=== PATIENT | female | born 1970 | race Caucasian/White ===

== ENCOUNTER 2024-06-04 08:27 | Outpatient (REF) | payer OTHER, SELFPAY ==
--- OUTSIDE RECORDS SUMMARY | 2024-06-04 11:33 | XMS_ITS | Clinical Summary ---
Author Organization [facility] Address [address] [place] [address] Care Team Providers Care Financial Report Service Sales Agent Name Role Phone Polly Wright MD Primary Care Provider [phone] Allergies Active Allergy Reactions Criticality Noted Date [...] Documents on File Type Date Recorded Patient Office Clerk Routine Expl anation Health Care Decision (hx) 04/29/2021 AD ROJAS DIRECTIVE Health Care Decision (hx) 04/29/2021 AD ROJAS DIRECTIVE Care Teams Financial Report Service Sales Agent Relationship Specialty Start Date End Date Polly Wright MD [address] [place] [address] PCP - General 12/23/21
[2024-06-04 13:42] LABS: TSH reflex Free T4 85.51 uIU/mL (0.32-4.0)
[2024-06-04 14:34] LABS: Free T4 (Free Thyroxine) < 0.42 ng/dL (0.71-1.85)
== END 2024-06-04 08:28 | disposition home or self-care (01) ==
LOC: HO.HMGCLDS 08:27
PROVIDERS: PCP Nurse Practitioner Family; Visit Provider Nurse Practitioner Family
DX: E03.9 Hypothyroidism, unspecified (principal)
CPT/HCPCS: 36415; 84439; 84443; 99202

== ENCOUNTER 2024-06-04 08:27 | Outpatient (AMB) | payer OTHER, SELFPAY ==
--- OUTSIDE RECORDS SUMMARY | 2024-06-04 08:49 | XMS_ITS | Clinical Summary ---
Author Organization [facility] Address [address] [place] [address] Care Team Providers Care Mens Locker Room Attendant Name Role Phone Polly Wright MD Primary Care Provider [phone] Allergies Active Allergy Reactions Criticality Noted Date Comments Sulfamethoxazole-Trimethop rim 07/30/2009 Other Reaction(s): Rash/Dermatitis Medications levothyroxine (SYNTHROID, LEVOTHROID) 112 mcg tablet Take 1 Tablet by mouth every morning (before breakfast). 06/20/2023 Active Active Problems Problem Noted Date Diagnosed Date Elevated LFTs 06/20/2023 Overweight (BMI 25.0-29.9) 09/18/2018 Essential hypertension 03/09/2018 Lumbago 06/04/2010 Lumbar disc disorder 10/10/2009 Tobacco use disorder 07/30/2009 Depression 01/25/2005 Hypothyroidism 12/19/2001 Overview (01/27/2024): [facility] RX 1998 Immunizations Name Administration Dates Next Due Hepatitis B (Recombivax HB-Dialysis) 18yo and ol jeanette 04/17/2003,03/21/2003 Influenza Quadravalent, MDCK , 0.5ml, preservative free (Flucelvax) 6mo and older 01/20/2021 Influenza Quadravalent, MDCK , 0.5ml, with preservative (Flucelvax) 6mo and older 12/03/2016 Influenza trivalent, 0.5mL, preservative free (Fluarix; FluLaval; Fluzone) ages 6mo and older (Afluria) 3 years and older 11/29/2012,12/14/2011 PPD Test 03/21/2003 Td Tetanus diptheria (Tdvax) 7yo and older 03/21 Tdap Tetanus diptheria acell ular pertussis (Boostrix; Adacel) 7yo and older 08/03/2012 Surgical History Surgery Date Site/Laterality Comments TUBAL LIGATION PROCEDURE: HISTORICAL TUBAL LIGATION TONSILLECTOMY PROCEDURE: HISTORICAL TONSILLECTOMY HERNIA REPAIR PROCEDURE: HISTORICAL HERNIA REPAIR/ING Medical History Medical History Date Comments Unspecified hypothyroidism 12/19/01 DX:Un specified hypothyroidism; COMMENT: [facility]O RX 1998 Depressive disorder, not els ewhere classified 01/25/2005 DX:Depressive disorder, not elsewhere classified Family History Medical History Relation Name Comments Other: cause unknown Father Diabetes Maternal Grandmother Other: alive and well Mother Relation Name Status Comments Father Maternal Grandmother Alive Mother Alive Social History Tobacco Use Types Packs/Day Years Used Date Smoking Tobacco: Every Day Cigarettes Smokeless Tobacco: Never Alcohol Use Standard Drinks/Week Comments No 0 (1 standard drink = 0.6 oz pur e alcohol) Comments Unknown Sex and Gender Information Value Date Recorded Sex Assigned at Not on file Legal Sex Female 4:58 PM EST Gender Identity Not on file Sexual Orientation Not on file Obstetrics History Last Filed Vital Signs Vital Sign Reading Time Taken Comments Blood Pressure 128/76 02/05/2022 9:44 AM EST Pulse 98 02/05/2022 9:44 AM EST Temperature - - Respiratory Rate - - Oxygen Saturation - - Inhaled Oxygen Concentration - - Weight 72.6 kg (160 lb) 02/05/2022 9:44 AM EST Height 167.6 cm (5' 6 ) 07/13/2021 1:30 PM EDT Body Mass Index 25.82 07/13/2021 1:30 PM EDT Plan of Treatment Health Maintenance Due Date Last Done Comments Breast Cancer Screening 1972 Hepatitis A Vaccines (1 of 2 - Risk 2-dose series) 06/07/1991 Pneumococcal Vaccine: 50+ Years (1 of 2 - PCV) 06/07/1991 Pneumococcal Vaccine: Pediatrics (0 to 5 Years) and At-Risk Patients (6 to 64 Years) (1 of 2 - PCV) 06/07/1991 Cervical Cancer Screening: Pap Smear 1993 Hepatitis B Vaccines (3 of 3 - 19+ 3-dose series) 09/19/2003 04/17/2003, 03/21/2003 Colorectal Cancer Screening: Colonoscopy 01/06/2022 Depression Screening 01/06/2022 HIV Screening 01/06/2022 Social Influencers of Health Screening 01/06/2022 Zoster Vaccines (1 of 2) 2022 DTaP,Tdap,and Td Vaccines (3 - Td or Tdap) 08/03/2022 08/03/2012, 03/21/2003 COVID-19 Vaccine (2 - season) 2023 11/11/2020 Hypertension/CHF/CAD Annual BMP Blood Test 04/11/2024 04/12/2023 Influenza Vaccine (Season Ended) 2024 01/20/2021, 12/03/2016, 11/29/2012, Additional history exists Cholesterol Screening (Lipid Panel) 04/11/2028 04/12/2023 Hepatitis C Screening Completed 04/12/2023 HIB Vaccines Aged Out No longer eligi ble based on patient's age to complete this topic HPV Vaccines Aged Out No longer eligi ble based on patient's age to complete this topic IPV Vaccines Aged Out No longer eligi ble based on patient's age to complete this topic MMR Vaccines Aged Out No longer eligi ble based on patient's age to complete this topic Meningococcal ACWY Vaccine Aged Out N o longer eligible based on patient's age to complete this topic Meningococcal B Vaccine Aged Out No l onger eligible based on patient's age to complete this topic RSV Immunization Patients Under 20 months Aged Out No longer eligible based on patient's age to complete this topic Varicella Vaccines Aged Out No longer eligible based on patient's age to complete this topic Procedures Procedure Name Priority Date/Time Associated Diagnosis Comments HEPATITIS C SCREENING Routine 04/12/2023 ANNUAL BMP BLOOD TEST Routine 04/12/2023 LIPID PANEL Routine 04/12/2023 from Last 3 Months or Most Recently Relevant to Health Maintenance Results * Annual BMP Blood Test (04/12/2023) Annual BMP Blood Test abstracted us Historical Provider HEALTH MAINTENANCE Final Result * Hepatitis C Screening (04/12/2023) Hepatitis C Screening abstracted Historical Provider HEALTH MAINTENANCE Final Result * (ABNORMAL) Lipid panel (04/12/2023) LDL/HDL Ratio 3 0 - 4 Triglycerides 129 0 - 150 mg/dL Cholesterol 300(A) 0 - 200 mg/dL HDL 99 >=40 mg/dL LDL Cholesterol 176(A) 0 - 100 mg/dL Blood Venous blood specimen / Unknown Historical Provider LAB BLOOD ORDERABLES Tameka l Result from Last 3 Months or Most Recently Relevant to Health Maintenance Advance Directives Documents on File Type Date Recorded Patient 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
[2024-06-04 09:30] VITALS: BP 110/74; PULSE 90; TEMP 36.8; O2SAT 98
--- NOTE | 2024-06-04 09:30 | MHC.OFFWIV ---
Intake Vital Signs 06/04/24 09:30 Weight 128 lb 8 oz BP 110/74 Blood Pressure Location Lt brachial Position Sitting Pulse 90 Pulse Source Pulse Oximeter Temp 98.2 F Temp Source Oral Pulse Oximetry (%) 98 Oxygen Delivery Method Room Air Intake Visit Reasons: EP Thyroid med refill (meg melendrez/ emilee) Intake Note: Patient here for refill on thyroid med. Patient would also like to talk about her mouth infection. Patient Tobacco Use Status: Current everyday Tobacco user Allergies sulfamethoxazole [From BACTRIM] Allergy (Unknown, Unverified 06/04/24 09:33) RASH trimethoprim [From BACTRIM] Allergy (Unknown, Unverified 06/04/24 09:33) RASH Do you need a note to return to daycare/school/sports/work: Yes HPI HPI Comments History of Present Illness Details 53 y/o Female patient who presents to the [facility] in clinic asking for Medication refills. Pt has Hypothyroidism and takes Levothyroxine 112 mcg daily. Pt has been out of medications for few months now. [facility] Medical History (Updated 06/04/24 @ 10:01 by Emilee Marti NP) Hypothyroidism Social History Patient Tobacco Use Status: Current everyday Tobacco user Review of Systems Const All systems reviewed & are unremarkable except as noted in HPI and below Physical Exam Vital Signs: Last Vital Signs Temp 98.2 F 06/04/24 09:30 Pulse 90 06/04/24 09:30 BP 110/74 06/04/24 09:30 Pulse Ox 98 06/04/24 09:30 Oxygen Delivery Method Room Air 06/04/24 09:30 Const General: no acute distress Orientation/consciousness: patient oriented x3 Resp Effort & Inspection: normal respiratory effort Auscultation: clear to auscultation bilaterally Cardio Heart sounds: S1 normal heart sound present and S2 normal heart sound present Neuro General: patient oriented x3, gait normal and moves all extremities Psych Speech and movement: Normal speech and movement present Assessment & Plan Assessment & Plan (1) Hypothyroidism: Code(s): E03.9 - Hypothyroidism, unspecified Qualifiers: Hypothyroidism type: unspecified Qualified Code(s): E03.9 - Hypothyroidism, unspecified Plan: Ordered TSH Panel Depending on the Labs, will refill Levothyroxine. F/U with PCP. Orders: Orders TSH reflex Free T4 Today E03.9 - Hypothyroidism, unspecified Coding Level of Care Code New Pt Level 4 (53124) Diagnoses Hypothyroidism, unspecified type E03.9 Hypothyroidism type: unspecified Time Spent (min) 20
== END 2024-06-04 10:06 | disposition home or self-care (01) ==
LOC: HO.HMCWIC 08:27
PROVIDERS: PCP Nurse Practitioner Family; Visit Provider Nurse Practitioner Family
DX: E03.9 Hypothyroidism, unspecified (principal)

== ENCOUNTER 2024-07-03 10:00 | Outpatient (REF) | payer OTHER, SELFPAY ==
--- OUTSIDE RECORDS SUMMARY | 2024-07-03 10:41 | XMS_ITS | Clinical Summary ---
Author Organization [facility] Address [address] [place] [address] Care Team Providers Care Combination Machine Tender Name Role Phone Polly Wright MD Primary Care Provider [phone] Allergies Active Allergy Reactions Criticality Noted Date [...] Documents on File Type Date Recorded Patient Etl Analyst Expl anation Health Care Decision (hx) 04/29/2021 AD ROJAS DIRECTIVE Health Care Decision (hx) 04/29/2021 AD ROJAS DIRECTIVE Care Teams Combination Machine Tender Relationship Specialty Start Date End Date Polly Wright MD [address] [place] [address] PCP - General 12/23/21
[2024-07-03 15:00] LABS: Free T4 (Free Thyroxine) 1.09 ng/dL (0.71-1.85)
== END 2024-07-03 10:01 | disposition home or self-care (01) ==
LOC: HO.HMGCLDS 10:00
PROVIDERS: Visit Provider Nurse Practitioner Family
DX: E03.9 Hypothyroidism, unspecified (principal)
CPT/HCPCS: 36415; 84439; 84443

== ENCOUNTER 2024-10-01 10:09 | Outpatient (AMB) | payer OTHER, SELFPAY ==
--- NOTE | 2024-10-01 10:27 | AM.OFFWIN_ITS ---
Intake Vital Signs 10/01/24 10:34 Height 5 ft 5.5 in Weight 135 lb BMI 22.1 BP 118/82 Blood Pressure Location Rt brachial Position Sitting Pulse 60 Pulse Source Pulse Oximeter Temp 99.1 F Temp Source Oral Pulse Oximetry (%) 96 Oxygen Delivery Method Room Air Intake Visit Reasons: EP thyroid med refill Patient Tobacco Use Status: Current everyday Tobacco user Allergies amoxicillin Allergy (Mild, Verified 10/01/24 10:36) Rash sulfamethoxazole (From BACTRIM) Allergy (Unknown, Verified 10/01/24 10:36) RASH trimethoprim (From BACTRIM) Allergy (Unknown, Verified 10/01/24 10:36) RASH Do you need a note to return to daycare/school/sports/work: No HPI HPI Comments History of Present Illness Details 54 y/o Female patient who presents to [facility] walk in clinic asking for Medication refills. Pt takes Levothyroxine 112 mcg daily and she has been completely out of them since August. Her PEDIATRIC ONCOLOGIST appointment with new PCP was candice pacheco, and currently waiting to be scheduled. Will send Patient for Lab work, then we will refill Medicine accordingly. [facility] Medical History (Updated 06/04/24 @ 10:01 by Soo Marti, ALVARADO) Hypothyroidism Social History Patient Tobacco Use Status: Current everyday Tobacco user Physical Exam Vital Signs: Last Vital Signs Temp 99.1 F 10/01/24 10:34 Pulse 60 10/01/24 10:34 BP 118/82 10/01/24 10:34 Pulse Ox 96 10/01/24 10:34 Oxygen Delivery Method Room Air 10/01/24 10:34 BMI result Body Mass Index 22.1 Const General: comfortable and no acute distress Nutritional Appearance: well nourished Orientation/consciousness: patient oriented x3 Resp Effort & Inspection: normal respiratory effort Auscultation: clear to auscultation bilaterally Cardio Heart sounds: S1 normal heart sound present and S2 normal heart sound present Neuro General: patient oriented x3, gait normal and moves all extremities Psych Speech and movement: Normal speech and movement present Assessment & Plan Assessment & Plan (1) Hypothyroidism: Code(s): E03.9 - Hypothyroidism, unspecified Qualifiers: Hypothyroidism type: unspecified Qualified Code(s): E03.9 - Hypothyroidism, unspecified Plan: Ordered TSH Lab work Will order refills pending Lab results. Pt need to establish care with new PCP. Orders: Orders TSH reflex Free T4 Today E03.9 - Hypothyroidism, unspecified Coding Level of Care Code Est Pt Level 4 (41635) Diagnoses Hypothyroidism, unspecified type E03.9 Hypothyroidism type: unspecified Time Spent (min) 20
[2024-10-01 10:34] VITALS: BP 118/82; PULSE 60; TEMP 37.3; O2SAT 96; BMI 22.1
--- OUTSIDE RECORDS SUMMARY | 2024-10-01 11:13 | XMS_ITS | Clinical Summary ---
Author Organization [facility] Address [address] [place] [address] Care Team Providers Care Adjunct Physics Instructor Name Role Phone Polly Wright MD Primary Care Provider [phone] Allergies Active Allergy Reactions Criticality Noted Date [...] Years (1 of 2 - PCV) 06/07/1991 Cervical Cancer Screening: Pap Smear 1993 Hepatitis B Vaccines (3 of 3 - 19+ 3-dose series) 09/19/2003 04/17/2003, 03/21/2003 Colorectal Cancer Screening: Colonoscopy 01/06/2022 HIV Screening 01/06/2022 Social Influencers of Health Screening 01/06/2022 Zoster Vaccines (1 of 2) 2022 DTaP,Tdap,and Td Vaccines (3 - Td or Tdap) 08/03/2022 08/03/2012, 03/21/2003 COVID-19 Vaccine (2 - season) 2023 11/11/2020 Depression Screening 02/08/2024 Hypertension/CHF/CAD Annual BMP Blood Test 04/11/2024 04/12/2023 Influenza Vaccine (#1) 2024 , 12/03/2016, 11/29/2012, Additional history exists Cholesterol Screening [...] BMP Blood Test abstracted us Historical Provider MD HEALTH MAINTENANCE Final Result * Hepatitis C Screening (04/12/2023) Hepatitis C Screening abstracted us Historical Provider HEALTH MAINTENANCE Final Result * (ABNORMAL) Lipid panel (04/12/2023) LDL/HDL Ratio 3 0 - 4 Triglycerides 129 0 - 150 mg/dL Cholesterol 300(A) 0 - 200 mg/dL HDL 99 >=40 mg/dL LDL Cholesterol 176(A) 0 - 100 mg/dL Blood Venous blood specimen / Unknown us Historical Provider LAB BLOOD ORDERABLES Tameka l Result from Last 3 Months or Most Recently Relevant to Health Maintenance Advance Directives Documents on File Type Date Recorded Patient Tax Associate Attorney Expl anation Health Care Decision (hx) 04/29/2021 AD ROJAS DIRECTIVE Health Care Decision (hx) 04/29/2021 AD ROJAS DIRECTIVE Care Teams Adjunct Physics Instructor Relationship Specialty Start Date End Date Polly Wright MD [address] [place] [id number] PCP - General 12/23/21
== END 2024-10-01 10:49 | disposition home or self-care (01) ==
PROVIDERS: PCP Nurse Practitioner Family; Visit Provider Nurse Practitioner Family
DX: E03.9 Hypothyroidism, unspecified (principal)

== ENCOUNTER 2024-10-01 10:09 | Outpatient (REF) | payer OTHER, SELFPAY ==
[2024-10-01 14:48] LABS: Free T4 (Free Thyroxine) < 0.42 ng/dL (0.71-1.85)
== END 2024-10-01 10:10 | disposition home or self-care (01) ==
LOC: HO.HMGCLDS 10:09
PROVIDERS: PCP Nurse Practitioner Family; Visit Provider Nurse Practitioner Family
DX: E03.9 Hypothyroidism, unspecified (principal)
CPT/HCPCS: 36415; 84439; 84443; 99212

== ENCOUNTER 2024-11-21 10:06 | Outpatient (REF) | payer OTHER, SELFPAY ==
[2024-11-21 13:05] LABS: MANUAL DIFF FLAG NO
[2024-11-21 13:14] LABS: Hematocrit 39.4 % (37.0-47.0); Hemoglobin 12.7 g/dl (12.0-16.0); Imm Gran Abs Auto 0.02 X10*3/uL (0.00-0.03); Imm Gran Pct Auto 0.3 % (0.0-0.4); Lymphocytes Absolute Auto 1.8 X10*3/uL (1.2-4.9); Mean Corpuscular HGB Conc 32.2 g/dl (31.0-35.0); Mean Corpuscular Hemoglobin 32.3 pg (27.0-33.0); Mean Corpuscular Volume 100.3 fL (80.0-98.0); NRBC Abs Auto 0.000 X10*3/uL (0.0-0.012); NRBC Pct Auto 0.0 /100WBC (0.0-0.2); Platelet Count 280 X10*3/uL (160-400); Red Blood Count 3.93 X10*6/uL (4.20-5.50); White Blood Count 6.8 X10*3/uL (4.8-10.8)
[2024-11-21 13:16] LABS: Appearance Urine Clear; Glucose Urine UA Negative (Negative); PH 6.0 (5.0-9.0); Specific Gravity - Urine 1.020 (1.005-1.025)
[2024-11-21 14:27] LABS: Alanine Aminotransferase 64 U/L (0-31); Albumin Level 4.6 g/dL (3.5-5.0); Alkaline Phosphatase 273 U/L (39-117); Anion Gap 10 (12-20); Aspartate Amino Transferase 44 U/L (5-31); Blood Urea Nitrogen 11 mg/dL (9-16); Calcium 9.7 mg/dL (8.4-10.2); Carbon Dioxide 29 mmol/L (22-29); Chloride 106 mmol/L (96-108); Cholesterol 185 mg/dL (<200); Estimated Glomerular Filt Rate > 60; HDL Cholesterol 53 mg/dL (>40); Potassium 4.1 mmol/L (3.3-5.1); Sodium 141 mmol/L (135-145); Total Protein 7.6 g/dL (6.5-8.0); Triglycerides 58 mg/dL (<150)
[2024-11-21 14:39] LABS: Folate 9.1 ng/mL (> or = 4.0); Vitamin B12 232 pg/mL (200-900)
== END 2024-11-21 10:07 | disposition home or self-care (01) ==
LOC: HO.HMGCLDS 10:06
PROVIDERS: PCP Internal Medicine; Visit Provider Internal Medicine
DX: Z00.00 Encounter for general adult medical examination without abnormal findings (principal); R79.89 Other specified abnormal findings of blood chemistry; E03.9 Hypothyroidism, unspecified; E05.00 Thyrotoxicosis with diffuse goiter without thyrotoxic crisis or storm; F41.9 Anxiety disorder, unspecified; F43.10 Post-traumatic stress disorder, unspecified; F11.20 Opioid dependence, uncomplicated
CPT/HCPCS: 36415; 80053; 80061; 81001; 82105; 82607; 82746; 83036; 84443; 85025; 96127; 99386

== ENCOUNTER 2024-11-21 10:06 | Outpatient (AMB) | payer OTHER, SELFPAY ==
[2024-11-21 10:34] VITALS: BP 134/78; PULSE 94; RESP 19; TEMP 37.4; O2SAT 99; BMI 21.1
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
--- OUTSIDE RECORDS SUMMARY | 2024-11-21 11:53 | XMS_ITS | Clinical Summary ---
Author Organization [facility] Address [address] [place] [address] Care Team Providers Care Network Security Administrator Name Role Phone Polly Wright MD Primary Care Provider [phone] Allergies Active Allergy Reactions Criticality Noted Date [...] 12/19/2001 Overview (01/27/2024): LEO RX 1998 Immunizations Immunization Administration Dates Next Due Hepatitis B (Recombivax [...] Last Done Comments Breast Cancer Screening 1972 Colorectal Cancer Screening: Colonoscopy 1972 Hepatitis A Vaccines (1 of 2 - Risk 2-dose series) 06/07/1991 Pneumococcal Vaccine: 50+ Years (1 of 2 - PCV) 06/07/1991 Cervical Cancer Screening: Pap Smear 1993 Hepatitis B Vaccines (3 of 3 - 19+ 3-dose series) 09/19/2003 04/17/2003, 03/21/2003 HIV Screening 01/06/2022 Social Influencers of Health Screening 01/06/2022 Zoster Vaccines (1 of 2) 2022 DTaP,Tdap,and Td Vaccines (3 - Td or Tdap) 08/03/2022 08/03/2012, 03/21/2003 Depression Screening 02/08/2024 Hypertension/CHF/CAD Annual BMP Blood Test 04/11/2024 04/12/2023 COVID-19 Vaccine (2 - season) 2024 11/11/2020 Influenza Vaccine (#1) 2024 , 12/03/2016, 11/29/2012, Additional history exists Cholesterol Screening (Lipid Panel) 04/11/2028 04/12/2023 RSV Immunization Adult Patients (1 - 1-dose 75+ series) 06/07/2047 Hepatitis C Screening Completed 04/12/2023 HIB Vaccines [...] Final Result * Hepatitis C Screening (04/12/2023) Pathologist [facility] Hepatitis C Screening abstracted us Historical Provider HEALTH MAINTENANCE Final Result * (ABNORMAL) Lipid panel (04/12/2023) Pathologist [facility] LDL/HDL Ratio 3 0 - 4 Triglycerides [...] Documents on File Type Date Recorded 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
== END 2024-11-21 13:20 | disposition home or self-care (01) ==
LOC: HO.HMCC 10:07
PROVIDERS: PCP Internal Medicine; Visit Provider Internal Medicine
DX: R79.89 Other specified abnormal findings of blood chemistry (principal); F43.10 Post-traumatic stress disorder, unspecified; Z00.00 Encounter for general adult medical examination without abnormal findings

== ENCOUNTER 2025-01-09 09:04 | Outpatient (AMB) | payer OTHER, SELFPAY ==
[2025-01-09 09:09] VITALS: BP 124/76; PULSE 69; RESP 17; O2SAT 97; BMI 20.5
--- NOTE | 2025-01-09 09:09 | MHC.PC.OV ---
Vital Signs 01/09/25 09:09 Height 5 ft 5.5 in Weight 125 lb BMI 20.5 BP 124/76 Blood Pressure Location Lt brachial Position Sitting Respiration 17 Pulse 69 Pulse Source Pulse Oximeter Pulse Oximetry (%) 97 Oxygen Delivery Method Room Air Intake Visit Reasons: 6 week follow up Intake Note: Pt is here today for 6 weeks follow up visit. Allergies amoxicillin Allergy (Mild, Verified 11/21/24 10:34) Rash sulfamethoxazole (From BACTRIM) Allergy (Unknown, Verified 11/21/24 10:34) RASH trimethoprim (From BACTRIM) Allergy (Unknown, Verified 11/21/24 10:34) RASH bupropion (From Wellbutrin) Adverse Reaction (Intermediate, Unverified 11/21/24 11:02) Agitated sertraline Adverse Reaction (Intermediate, Verified 11/21/24 11:03) Nausea and Vomiting Medication List - Last Reconciled 01/09/25 by Thais Aguilar MD buprenorphine-naloxone 4-1 mg (Suboxone) 1 film sublingual DAILY buprenorphine-naloxone 8-2 mg (Suboxone) 1 film sublingual BID levothyroxine 112 mcg PO DAILY paroxetine HCl (Paxil) 20 mg PO DAILY Tobacco use date assessed: 01/09/25 Dental Screening Dental Screen Date: 11/21/24 HPI 6 week follow up HPI Details Patient presents for the follow-up of chronic anxiety better on paroxetine and hypothyroidism controlled on levothyroxine. [facility] Medical History (Updated 01/09/25 @ 09:29 by Thais Aguilar MD) Annual physical exam Colon cancer screening Liver cyst PTSD (post-traumatic stress disorder) Tobacco dependence Elevated LFTs Marijuana use Opiate addiction H/O ETOH abuse Anxiety Hypothyroidism Surgical History Hx of tubal ligation Hx of section Hx of cholecystectomy History of hernia surgery Hx of tonsillectomy Family History Father Cirrhosis of liver Mother No problems noted. 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 [facility] Tobacco Use Status: Current everyday Tobacco user Tobacco use type: Cigarette Cigarette Packs Per Day: 1 Cigarettes Per Day: 20 e-Cigarette/Vaping Use: Former Use service: No Current occupational status: employed Cognitive needs: No Hearing needs: No Vision needs: Yes Questionnaire Thrive Questionnaire Date Thrive assessed: 11/14/24 I am a: Patient What is your living situation today?: I have a steady place to live Within the past 12 months, did the food you bought not last and you didn't have the money to get more?: I choose not to answer this question Within the past 12 months, did you worry whether your food would run out before you got money to buy more?: I choose not to answer this question Do you have trouble paying for medicines?: No Do you have trouble getting transportation to medical appointments?: No Do you have trouble paying your heating and electricity bill?: I choose not to answer this question Do you have trouble taking care of your child, family member or friend?: No Do you have trouble with day-to-day activities such as bathing, preparing meals, shopping, managing finances, etc.?: No Are you currently unemployed and looking for a job?: No Are you interested in more education?: No Please select the resources that you would like help with: None THRIVE Score: 0 AVE-7 AMB Questionnaire AVE-7 Date AVE - 7 assessed: 11/21/24 Source: Developed by Drs. Ashutosh Orourke, Maria C Camara, Jose Reyes and colleagues, with an educational edmundo from [employer]. Review of Systems Const All systems reviewed & are unremarkable except as noted in HPI and below Eyes Reports no additional complaints ENT Reports no additional complaints Card Reports no additional complaints Resp Reports no additional complaints GI Reports no additional complaints Reports no additional complaints Physical exam (Primary Care) Vital Signs: Last Vital Signs Pulse 69 01/09/25 09:09 Resp 17 01/09/25 09:09 BP 124/76 01/09/25 09:09 Pulse Ox 97 01/09/25 09:09 Oxygen Delivery Method Room Air 01/09/25 09:09 BMI result Body Mass Index 20.5 Tobacco/Smoking Status: Tobacco use Status Tobacco use date assessed 01/09/25 01/09/25 09:14 Patient Tobacco Use Status Current everyday Tobacco 01/09/25 09:14 Tobacco use type Cigarette 01/09/25 09:14 e-Cigarette/Vaping Use Former Use 01/09/25 09:14 Thrive Assessment: Date of Thrive Assessment Date Thrive assessed 11/14/24 01/09/25 09:14 Const General: no acute distress HENMT Head: Yes normal to inspection Resp Effort & Inspection: normal respiratory effort Auscultation: clear to auscultation bilaterally Cardio Rhythm: regular rhythm Heart sounds: S1 normal heart sound present and S2 normal heart sound present GI Inspection: Yes normal to inspection Palpation (GI): Soft to palpation Percussion: Yes normal to percussion Auscultation: normal bowel sounds Speculum Exam - Vagina: normal appearance of the vagina Speculum Exam - Cervix: normal appearance of the cervix Bimanual exam- vagina & uterus: normal bimanual exam Coding Level of Care Code Est Pt Level 4 (24911) Diagnoses Anxiety F41.9 Opiate addiction F11.20 Hypothyroidism, unspecified type E03.9 Hypothyroidism type: unspecified Annual physical exam Z00.00 Assessment & Plan Assessment & Plan (1) Anxiety: Comment: tried multiple meds, and counseling Code(s): F41.9 - Anxiety disorder, unspecified Category: Medical Plan: Continue paroxetine (2) Opiate addiction: Comment: in [facility] since 06/2023 Code(s): F11.20 - Opioid dependence, uncomplicated Category: Medical Plan: Follow-up with Suboxone program (3) Hypothyroidism: Comment: s/p radioactive treatment for Graves disease Code(s): E03.9 - Hypothyroidism, unspecified Category: Medical Qualifiers: Hypothyroidism type: unspecified Qualified Code(s): E03.9 - Hypothyroidism, unspecified Plan: Continue levothyroxine (4) Annual physical exam: Comment: Negative Cologuard 01/01, pap 01/2025, mammogram 01/2025 Code(s): Z00.00 - Encounter for general adult medical examination without abnormal findings Category: Medical Plan: Pap smear was done today Orders: Orders TSH reflex Free T4 3 Months E03.9 - Hypothyroidism, unspecified, F41.9 - Anxiety disorder, unspecified Vitamin D 25-OH Total 3 Months E03.9 - Hypothyroidism, unspecified, F41.9 - Anxiety disorder, unspecified Pap Smear Today Z00.00 - Encounter for general adult medical examination without abnormal findings Comprehensive [place]. Panel Fast 3 Months E03.9 - Hypothyroidism, unspecified, F41.9 - Anxiety disorder, unspecified Lipid Panel 3 Months E03.9 - Hypothyroidism, unspecified, F41.9 - Anxiety disorder, unspecified Complete Blood Count Auto Diff 3 Months E03.9 - Hypothyroidism, unspecified, F41.9 - Anxiety disorder, unspecified Medications: Refilled levothyroxine 112 mcg PO DAILY 90 tabs 3RF E03.9 - Hypothyroidism, unspecified paroxetine HCl (Paxil) 20 mg PO DAILY 90 tabs 3RF
--- OUTSIDE RECORDS SUMMARY | 2025-01-09 09:40 | XMS_ITS | Clinical Summary ---
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
== END 2025-01-09 09:37 | disposition home or self-care (01) ==
LOC: HO.HMCC 09:05
PROVIDERS: PCP Internal Medicine; Visit Provider Internal Medicine
DX: F41.9 Anxiety disorder, unspecified (principal); F11.20 Opioid dependence, uncomplicated; E03.9 Hypothyroidism, unspecified; Z00.00 Encounter for general adult medical examination without abnormal findings

== ENCOUNTER 2025-01-09 09:04 | Outpatient (REF) | payer OTHER, SELFPAY | END 2025-01-09 09:05 | disposition home or self-care (01) | LOC: HO.LNP 09:04 | PROVIDERS: PCP Internal Medicine; Visit Provider Internal Medicine | DX: Z00.00 Encounter for general adult medical examination without abnormal findings (principal); F41.9 Anxiety disorder, unspecified; F11.20 Opioid dependence, uncomplicated; E03.9 Hypothyroidism, unspecified | CPT/HCPCS: 87626; 88175; 99212 ==

== ENCOUNTER 2025-01-23 08:55 | Outpatient (REF) | payer OTHER, SELFPAY ==
--- NOTE | ~2025-01-23 | US_ITS ---
CLINICAL HISTORY: R79.89 - Other specified abnormal findings of blood chemistry US abdomen limited Comparison: None provided Findings: The visualized pancreas is normal. The aorta and inferior vena cava are normal caliber. The liver is normal in size with increase of echogenicity and heterogeneous echotexture. There is intrahepatic bile duct dilatation. The common duct is 12 mm in diameter. Cholecystectomy. The main portal vein is antegrade. The right kidney is 10.2 cm in length. No ascites. IMPRESSION: Diffuse increase of echogenicity of the liver favored to represent hepatic steatosis. Dilation of the intrahepatic and extrahepatic biliary duct is likely secondary to cholecystectomy. Clinical correlation is recommended. This document has been electronically signed by: Enrique Smith MD on 01/23/2025 17:16:27
--- OUTSIDE RECORDS SUMMARY | 2025-01-23 09:35 | XMS_ITS | Clinical Summary ---
Author Organization [facility] Address [address] [place] [address] Care Team Providers Care Patrol Deputy Sheriff Name Role Phone Polly Wright MD Primary Care Provider [phone] Allergies Active Allergy Reactions Criticality Noted Date [...] on file Sexual Orientation Not on file Last Filed Vital Signs Vital Sign Reading [...] Hepatitis C Screening (04/12/2023) Pathologist [facility] Hepatitis C Screening abstracted us Historical Provider HEALTH MAINTENANCE Final Result * (ABNORMAL) Lipid panel (04/12/2023) Pathologist [facility] LDL/HDL Ratio 3 0 - 4 [...] Documents on File Type Date Recorded 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
== END 2025-01-23 08:56 | disposition home or self-care (01) ==
LOC: HO.HMGCX 08:55
PROVIDERS: PCP Internal Medicine; Visit Provider Internal Medicine
DX: R79.89 Other specified abnormal findings of blood chemistry (principal)
CPT/HCPCS: 76705

== ENCOUNTER → 2025-01-23 08:59 | Outpatient (BNV) | payer OTHER, SELFPAY | PROVIDERS: PCP Internal Medicine; Visit Provider Nuclear Medicine | DX: K83.8 Other specified diseases of biliary tract (principal); R93.2 Abnormal findings on diagnostic imaging of liver and biliary tract | CPT/HCPCS: 76705 ==